=== PATIENT | male | born 1970 | race Caucasian/White ===

== ENCOUNTER 2019-09-19 05:48 | Outpatient (REF) | payer BC, SELFPAY ==
[2019-09-19 07:03] LABS: Sperm(Post-Vasectomy) Present
== END 2019-09-19 06:08 ==
LOC: LBN 05:48
PROVIDERS: PCP Neuromusculoskeletal Medicine & OMM; Visit Provider Urology
DX: Z30.8 Encounter for other contraceptive management (principal)
CPT/HCPCS: 89240; 89310; 89321

== ENCOUNTER 2020-01-05 07:25 | Outpatient (REF) | payer BC, SELFPAY ==
[2020-01-05 09:09] LABS: Sperm(Post-Vasectomy) Absent
== END 2020-01-05 07:45 ==
LOC: LBN 07:25
PROVIDERS: PCP Neuromusculoskeletal Medicine & OMM; Visit Provider Urology
DX: Z30.2 Encounter for sterilization (principal)
CPT/HCPCS: 89321

== ENCOUNTER 2023-03-03 10:14 | Emergency (ER) | payer BC, SELFPAY ==
[2023-03-03 10:19] VITALS: BP 133/74; PULSE 77; RESP 18; TEMP 36.4; O2SAT 98
--- NOTE | 2023-03-03 10:33 | W.ED.GENAD ---
Discharge Plan Disposition Patient Disposition: Home Condition: Improving Discharge Details Clinical Impression: Acute diverticulitis Primary Care Provider: Gregg Meyer ED Provider: Tania Thomas Home Meds and New Rx's Prescriptions: New ciprofloxacin HCl 500 mg tablet 500 mg PO BID 7 Days Qty: 14 0RF metronidazole 500 mg tablet 500 mg PO TID 10 Days Qty: 30 0RF Continued omeprazole 40 mg Capsule,Delayed Release(Dr/Ec) 40 mg PO DAILY Discharge Instructions Instructions: Diverticulitis (ED), Diverticulitis Diet (ED) Additional Instructions: Your CT scan today shows that you have diverticulitis which is an infection in your colon. Prescriptions for 2 antibiotics have been sent electronically to your pharmacy to start today and take as directed until finished. Try to follow a diet of clear liquids today and tomorrow to help with bowel rest while treating your infection. You have been placed on general surgery's follow-up list for reevaluation in the next 2 weeks. Return immediately to the emergency department if you develop any worsening or new concerning symptoms such as fever, persistent vomiting, worsening pain or any other concerns. Referrals: Kuldip Garner MD [ [facility] STAFF PHYSICIAN] - Discharge Data Discharge Physician: Tania Thomas Medical Decision Making 1030 -- 53-year-old male with no past medical history presents with intermittent sharp lower abdominal pain since yesterday. No fever, nausea, vomiting, urinary symptoms or diarrhea. Patient appears comfortable and nontoxic. Vitals within normal limits. His abdomen is soft and tender across the lower abdomen with left lower quadrant greater than right lower quadrant tenderness. He has some rebound tenderness in the right lower quadrant. There is no rigidity, guarding or peritoneal signs. Differential diagnosis includes diverticulitis, appendicitis, colitis. He has no tearing or ripping sensation, pulsatile masses or other peritoneal signs to suspect a ruptured aneurysm or dissection. Will obtain screening labs, CT abdomen and pelvis and give IV Tylenol and fluid bolus and reassess. 1220 --Labs and imaging reviewed. Normal white blood cell count. Normal electrolytes. T. bili 1.3. Normal lipase. Urinalysis negative. CT notes: IMPRESSION: 1. There is acute diverticulitis involving the proximal sigmoid colon.? No abscess or free air. Patient reassessed and he states his pain is slightly improved. He does feel comfortable going home. We will treat with oral Cipro and Flagyl. He was given doses here which he tolerated. Advised on clear liquids for the next 24 to 48 hours. Patient placed on general surgery follow-up list. Prescriptions for Cipro and Flagyl sent electronically to his pharmacy. Usual and customary return precautions given prior to discharge. Medical Records Medical records reviewed: Yes I reviewed the patient's medical records. Imaging Data Radiologic Study: Radiologist's impression: CT ABDOMEN ? PELVIS W CLINICAL HISTORY: ? lower abd pain,tender LLQ>RLQ ? TECHNIQUE:? Imaging Protocol: Axial computed tomography images with coronal and sagittal reformatted images were created and reviewed CONTRAST MATERIAL:? Intravenous: Omnipaque 350 Contrast volume:99 mL Oral: No COMPARISON:? No exams were available for comparison FINDINGS: ABDOMEN: Lung Bases: There is diffuse thickening of the distal esophagus and a small hiatal hernia. Liver: Normal density. No measurable mass. Portal, Superior Mesenteric, and Splenic Veins: Unremarkable.? Gallbladder and Biliary Tract: No radiodense calculus or dilation. Pancreas: Normal density, no abnormal calcifications or inflammatory process. Spleen: Normal. Adrenals: No masses seen. Kidneys: Normal size, contour and axis. No radiodense stones or obstructive uropathy. Tiny hypodensities are seen in the kidneys.? They are too small for further characterization but likely reflect small cysts.? Abdominal Aorta: Abdominal portion non-dilated. Bowel: There is diverticulosis of the colon.? There is bowel wall thickening seen in the proximal sigmoid colon with pericolonic inflammatory changes.? Findings are consistent with acute diverticulitis.? There is no evidence of bowel obstruction.? Appendix is unremarkable. Peritoneal Cavity: No ascites, collection or mesenteric inflammatory response.? No free air. Lymph Nodes: Within normal limits. Bones: Within normal limits for the patient's age.? Soft Tissues: There is a small fat containing umbilical hernia.? PELVIS: Bladder: Symmetric distention, no gross wall thickening. Reproductive Organs: Unremarkable as visualized. Lymph Nodes: Within normal limits. Bones: Within normal limits for the patient's age.? IMPRESSION: 1. There is acute diverticulitis involving the proximal sigmoid colon.? No abscess or free air. Lab Data Lab results reviewed: Yes I reviewed the patient's lab results. Labs: Laboratory Tests Range/Units 03/03/23 03/03/23 03/03/23 11:15 11:15 11:15 WBC (4.4-10.8) 10^3/uL 10.33 RBC (4.36-5.78) 10^6/uL 5.48 Hgb (13.5-17.5) g/dL 15.7 Hct (40.0-50.0) % 46.2 MCV (80-95) fL 84 MCH (27.0-33.0) pg 28.6 MCHC (32.0-36.0) % 34.0 RDW (11.8-14.1) % 12.0 Plt Count (130-400) 10^3/uL 241 MPV (8.0-11.0) fL 10.5 Immature Gran % 0.3 Neutrophils % 73.1 Lymphocytes % 14.1 Monocytes % 10.4 Eosinophils % 1.6 Basophils % 0.5 Nucleated RBC % (0.0-0.3) % 0.0 Absolute Neutrophils (1.2-6.7) 10^3/uL 7.55 H Absolute Lymphocytes (1.2-3.4) 10^3/uL 1.46 Absolute Monocytes (0.1-0.8) 10^3/uL 1.07 H Absolute Eosinophils (0.0-0.7) 10^3/uL 0.17 Absolute Basophils (0.0-0.2) 10^3/uL 0.05 Sodium (136-145) mmol/L 139 Potassium (3.5-5.1) mmol/L 4.2 Chloride (98-107) mmol/L 102 Carbon Dioxide (21.0-32.0) mmol/L 29.0 Anion Gap (3-11) mmol/L 8.0 BUN (7-18) mg/dL 17 Creatinine (0.70-1.30) mg/dL 1.1 Est GFR (CKD-EPI 2020) (mL/min/1.73m2) 80.27 Glucose (74-106) mg/dL 107 H Calcium (8.5-10.1) mg/dL 9.4 Total Bilirubin (0.2-1.0) mg/dL 1.3 H AST (15-37) U/L 20 ALT (16-63) U/L 84 H Alkaline Phosphatase (46-116) U/L 73 Total Protein (6.4-8.2) g/dL 8.8 H Albumin (3.4-5.0) g/dL 4.5 Lipase (16-77) U/L 34 Urine Color (Yellow) Yellow Urine Clarity (Clear) Clear Urine pH (5-8) 6.5 Ur Specific [place] (1.005-1.025) 1.015 Urine Protein (Negative) mg/dL Negative Urine Ketones (Negative) mg/dL Negative Urine Blood (Negative) Negative Urine Nitrite (Negative) Negative Urine Bilirubin (Negative) Negative Urine Urobilinogen (Up to 0.2) mg/dL 0.2 Ur Leukocyte Esterase (Negative) Negative Urine Glucose (Negative) mg/dL Negative HPI General Mode of arrival: ambulatory. Date/Time Provider Initiated Documentation: 03/03/23 10:32. Limitations to Documentation: no limitations. Information obtained by: patient. HPI Narrative: Pt is a 53yo M who presents to the ED w/ a c/o lower abdominal pain since yesterday. Pt states the pain has been intermittent, sharp and feels like it radiates from side to side across the lower abdomen and feels it is slightly worse on the left side. He admits to some worsening of pain while sitting. He states the pain is 5/10 at its worst and 2/10 at its best. He has not taken anything for pain. He states he had a bowel movement just prior to arrival which was within normal limits. He denies any fever, nausea, vomiting, urinary symptoms, diarrhea or rectal bleeding. He states 2 weeks ago he had a 2-day stomach bug in which she had crampy abdominal pain and several episodes of watery diarrhea but states this completely resolved and he had been having normal bowel movements without pain since then until the pain started yesterday. He denies any recent antibiotics, recent travel or recent sick contacts. Related Data Home Medications Medication Instructions Recorded Confirmed ciprofloxacin HCl 500 mg tablet 500 mg PO BID 7 days #14 tabs 03/03/23 metronidazole 500 mg tablet 500 mg PO TID 10 days #30 tabs 03/03/23 omeprazole 40 mg capsule,delayed 40 mg PO DAILY 03/03/23 03/03/23 release Previous Rx's Medication Instructions Recorded ciprofloxacin HCl 500 mg tablet 500 mg PO BID 7 days #14 tabs 03/03/23 metronidazole 500 mg tablet 500 mg PO TID 10 days #30 tabs 03/03/23 Allergies Allergy/AdvReac Type Severity Reaction Status Date / Time egg Allergy Unverified 03/03/23 10:20 General Stated Complaint: Abd Prob SCAR: 3 Review of Systems All systems reviewed & are unremarkable except as noted in HPI and below Constitutional Constitutional: Reports as per HPI, Denies chills and Denies fever(s) Eyes Eyes: Denies blurry vision ENT Ears, Nose, Mouth, and Throat: Denies dizziness, Denies sore throat and Denies throat swelling Cardiovascular Cardiovascular: Denies chest pain and Denies dyspnea Respiratory Respiratory: Denies cough and Denies dyspnea Gastrointestinal Gastrointestinal: Reports abdominal pain, Denies diarrhea and Denies vomiting Genitourinary Genitourinary: Denies hematuria and Denies dysuria Musculoskeletal Musculoskeletal: Denies back pain and Denies numbness Integumentary/Breasts Skin/Breast: Denies lesions and Denies rash Neurologic Neurologic: Denies dizziness, Denies localized weakness and Denies numbness Allergic/Immunologic Allergic/Immunologic: Denies throat swelling PFSH All Active Problems (Updated 03/03/23 @ 12:46 by Tania Thomas DO) Acute diverticulitis (Acute) Medical History (Updated 03/03/23 @ 12:46 by Tania Thomas DO) GERD (gastroesophageal reflux disease) Surgical History (Updated 03/03/23 @ 12:45 by Tania Thomas DO) No significant past surgical history Social History Smoking/Tobacco Use Status: Never Smoking risk assessment performed?: Yes Alcohol Intake: current Alcohol Intake frequency: holidays/special occasions only Substance use type: does not use Exam Const General: cooperative, healthy appearing and no acute distress [facility] Head: normal to inspection Face and sinus: normal facial exam Eyes General: appearance normal, both eyes and all related structures Pupils: PERRL EOM: EOM intact bilaterally Neck Neck: normal visual inspection and No submandibular swelling Lymphatic: no lymphadenopathy noted Chest Chest: normal inspection of the chest and no tenderness Resp Effort & Inspection: normal respiratory effort and able to speak in complete sentences Auscultation: clear to auscultation bilaterally Cardio Rate: regular rate Rhythm: regular rhythm GI Inspection: normal to inspection Palpation: soft, not firm, not rigid and tender in the LLQ and in the RLQ Auscultation: hypoactive bowel sounds Skin General skin exam: no rashes or lesions noted Neuro General: patient alert, patient awake and patient oriented x3 Cognition: normal cognition Speech: speech normal Motor: muscle tone normal throughout Sensory Exam: no sensory deficits noted Extrem General: normal to inspection, full ROM, capillary refill normal, no calf tenderness bilaterally and no edema Psych Appearance: grossly normal Mental Status: mental status grossly normal Speech and Movement: speech and movement normal Affect: normal affect Course Vital Signs Vital signs: Vital Signs Temperature 97.5 F L 03/03/23 10:19 Pulse 77 03/03/23 10:19 Respiratory Rate 18 03/03/23 10:19 Blood Pressure 133/74 03/03/23 10:19 Pulse Oximetry 98 03/03/23 10:19 Temperature 97.5 F L 03/03/23 10:19 Temperature Source Tympanic 03/03/23 10:19 Pulse 77 03/03/23 10:19 Respiratory Rate 18 03/03/23 10:19 Respiratory Effort Normal, Non-Labored 03/03/23 10:20 Blood Pressure 133/74 03/03/23 10:19 Pulse Oximetry 98 03/03/23 10:19 Oxygen Delivery Method Room Air 03/03/23 10:19 Oxygen Flow Rate 0 03/03/23 10:19
--- NOTE | 2023-03-03 10:45 | DI.CT_ITS ---
Exam(s) CT ABDOMEN PELVIS W EXAM: CT ABDOMEN PELVIS W CLINICAL HISTORY: lower abd pain,tender LLQ>RLQ TECHNIQUE: Imaging Protocol: Axial computed tomography images with coronal and sagittal reformatted images were created and reviewed CONTRAST MATERIAL: Intravenous: Omnipaque 350 Contrast volume:99 mL Oral: No COMPARISON: No exams were available for comparison FINDINGS: ABDOMEN: Lung Bases: There is diffuse thickening of the distal esophagus and a small hiatal hernia. Liver: Normal density. No measurable mass. Portal, Superior Mesenteric, and Splenic Veins: Unremarkable. Gallbladder and Biliary Tract: No radiodense calculus or dilation. Pancreas: Normal density, no abnormal calcifications or inflammatory process. Spleen: Normal. Adrenals: No masses seen. Kidneys: Normal size, contour and axis. No radiodense stones or obstructive uropathy. Tiny hypodensit ies are seen in the kidneys. They are too small for further characterization but likely reflect smal l cysts. Abdominal Aorta: Abdominal portion non-dilated. Bowel: There is diverticulosis of the colon. There is bowel wall thickening seen in the proximal sig moid colon with pericolonic inflammatory changes. Findings are consistent with acute diverticulitis. There is no evidence of bowel obstruction. Appendix is unremarkable. Peritoneal Cavity: No ascites, collection or mesenteric inflammatory response. No free air. Lymph Nodes: Within normal limits. Bones: Within normal limits for the patient's age. Soft Tissues: There is a small fat containing umbilical hernia. PELVIS: Bladder: Symmetric distention, no gross wall thickening. Reproductive Organs: Unremarkable as visualized. Lymph Nodes: Within normal limits. Bones: Within normal limits for the patient's age. IMPRESSION: 1. There is acute diverticulitis involving the proximal sigmoid colon. No abscess or free air. 2. Findings were discussed with Dr. Thomas at 12:15 p.m. on 03/03/2023. RADIATION DOSE DELIVERED: 899.63mGy.cm Total DLP DATA REPOSITORY: All CT scans at this facility are submitted to the National Radiology Data Registry (NRDR) Dose Index Registry (DIR) with the [employer] ([employer]). RADIATION OPTIMIZATION: All CT scans at this facility use at least one of these dose optimization te chniques: automated exposure control; mA and/or kV adjustment per patient size (includes targeted exa ms where dose is matched to clinical indication); or iterative reconstruction.
[2023-03-03] MEDS: ACETAMINOPHEN 1,000 MG/100 ML BTL 400 MG IVPB (11:20)
[2023-03-03] MEDS: Normal Saline 1,000 ML 1000 ML IV (11:22)
[2023-03-03 11:25] LABS: Abs Immature Grans 0.03 10^3/uL (0.0-0.06); Absolute Basophil Count 0.05 10^3/uL (0.0-0.2); Absolute Eosinophil Count 0.17 10^3/uL (0.0-0.7); Absolute Lymphocyte Count 1.46 10^3/uL (1.2-3.4); Absolute Monocyte Count 1.07 10^3/uL (0.1-0.8); Absolute Neutrophil Count 7.55 10^3/uL (1.2-6.7); Basophils % 0.5; Eosinophils % 1.6; HCT 46.2 % (40.0-50.0); HGB 15.7 g/dL (13.5-17.5); Immature Grans % 0.3; Lymphocytes % 14.1; MCH 28.6 pg (27.0-33.0); MCV 84 fL (80-95); MPV 10.5 fL (8.0-11.0); Monocytes % 10.4; Neutrophils % 73.1; Platelet Count 241 10^3/uL (130-400); RBC 5.48 10^6/uL (4.36-5.78); RDW-SD 36.3 fL; WBC 10.33 10^3/uL (4.4-10.8)
[2023-03-03 11:35] LABS: Bilirubin Negative (Negative); Blood Negative (Negative); Clarity Clear (Clear); Glucose Negative (Negative); Ketones Negative (Negative); Leukocyte Esterase Negative (Negative); Nitrite Negative (Negative); Specific Gravity 1.015 (1.005-1.025); Urobilinogen 0.2 mg/dL (Up to 0.2); pH 6.5 (5-8)
[2023-03-03] MEDS: Normal Saline Flush 10 ML SYR IVP (11:36)
[2023-03-03 11:40] LABS: ALT 84 U/L (16-63); AST 20 U/L (15-37); Albumin 4.5 g/dL (3.4-5.0); Alkaline Phosphatase 73 U/L (46-116); BUN 17 mg/dL (7-18); Bilirubin, Total 1.3 mg/dL (0.2-1.0); CREATININE 1.1 mg/dL (0.70-1.30); Calcium 9.4 mg/dL (8.5-10.1); Chloride 102 mmol/L (98-107); Estimated GFR 80.27 (mL/min/1.73m2); Glucose 107 mg/dL (74-106); Lipase 34 U/L (16-77); Potassium 4.2 mmol/L (3.5-5.1); Sodium 139 mmol/L (136-145); Total Protein 8.8 g/dL (6.4-8.2)
[2023-03-03] MEDS: Normal Saline - Diluent 50 ML VIAL IJ (11:46)
[2023-03-03] MEDS: Omnipaque 350 MG/ML 500 ML BTL-Imaging package 100 ML IJ (11:46)
[2023-03-03] MEDS: Ketorolac 30 MG/ML VIAL IVP (13:17)
[2023-03-03] MEDS: Ciprofloxacin 500 MG TAB PO (13:17)
[2023-03-03] MEDS: metroNIDAZOLE 500 MG TAB PO (13:17)
[2023-03-03 13:18] VITALS: BP 104/53; PULSE 71; RESP 16; O2SAT 97
== END 2023-03-03 13:25 | disposition home or self-care (01) ==
PROVIDERS: Emergency Provider Physician Assistant; PCP Neuromusculoskeletal Medicine & OMM
DX: K57.32 Diverticulitis of large intestine without perforation or abscess without bleeding (principal)
CPT/HCPCS: 80053; 83690; 96361; 96365; 96375; 99285; 74177; 81003; 85025; 99284; J0131; J1885